=== PATIENT | female | born 1960 | race Caucasian/White ===

== ENCOUNTER 2022-06-16 22:48 | Emergency (ER) | payer BC, OTHER ==
[2022-06-16] MEDS ORDERED: LACTATED RINGERS 1,000 ML IV ONE ×2 (22:55→23:00)
[2022-06-16] MEDS ORDERED: ONDANSETRON 4 MG/2 ML (SDV) Z0FRAN ONE (22:56)
[2022-06-16] MEDS ORDERED: ONDANSETRON 4 MG/2 ML (SDV) Z0FRAN IVP ONE (23:00)
[2022-06-16 23:32] LABS: BASOPHILS # (AUTO) 0.1 10^3/uL (0.0-0.1); BASOPHILS % (AUTO) 1 % (0-10); EOSINOPHILS # (AUTO) 0.1 10^3/uL (0.0-0.3); EOSINOPHILS % (AUTO) 1 % (0-10); HEMATOCRIT 35 % (35-52); HEMOGLOBIN 11.7 g/dL (11.5-16.0); LYMPHOCYTES # (AUTO) 1.2 10^3/uL (1.0-4.0); LYMPHOCYTES % (AUTO) 19 % (12-44); MEAN CORPUSCULAR HEMOGLOBIN 31 pg (25-34); MEAN CORPUSCULAR HGB CONC 33 g/dL (32-36); MEAN CORPUSCULAR VOLUME 94 fL (80-99); MEAN PLATELET VOLUME 9.9 fL (9.0-12.2); MONOCYTES # (AUTO) 0.3 10^3/uL (0.0-1.0); MONOCYTES % (AUTO) 5 % (0-12); NEUTROPHILS # (AUTO) 4.5 10^3/uL (1.8-7.8); NEUTROPHILS % (AUTO) 73 % (42-75); PLATELET COUNT 205 10^3/uL (130-400); WHITE BLOOD COUNT 6.3 10^3/uL (4.3-11.0)
[2022-06-16 23:41] LABS: ALBUMIN 3.9 GM/DL (3.2-4.5); CHLORIDE 101 MMOL/L (98-107); POTASSIUM 3.6 MMOL/L (3.6-5.0); SODIUM 134 MMOL/L (135-145)
[2022-06-16 23:42] LABS: CALCIUM 8.3 MG/DL (8.5-10.1)
[2022-06-16 23:43] LABS: AMYLASE 42 U/L (25-125)
[2022-06-16 23:44] LABS: GLUCOSE 114 MG/DL (70-105); TOTAL PROTEIN 6.3 GM/DL (6.4-8.2)
[2022-06-16 23:45] LABS: CARBON DIOXIDE 19 MMOL/L (21-32)
[2022-06-16 23:46] LABS: BILIRUBIN,TOTAL 0.2 MG/DL (0.1-1.0)
[2022-06-16 23:47] LABS: ALKALINE PHOSPHATASE 100 U/L (40-136)
[2022-06-16 23:48] LABS: CREATININE SERUM 0.76 MG/DL (0.60-1.30); GFR ESTIMATED 89
[2022-06-16 23:49] LABS: BUN/CREATININE RATIO 25
[2022-06-16 23:50] LABS: ALANINE AMINOTRANSFERASE 39 U/L (0-55); MAGNESIUM 1.8 MG/DL (1.6-2.4)
[2022-06-16 23:51] LABS: LIPASE 30 U/L (8-78)
--- NOTE | 2022-06-16 23:57 | ED General ---
General Chief Complaint: Substance Abuse Stated Complaint: VOMITITNG Nursing Triage Note: TO ED VIA [facility] FROM [facility]. PT HAS BEEN DRINKING TONIGHT AND WAS VOMITING AND BECAME "UNRESPONSIVE" IN RESTROOM AT [facility]. PT AROUSES TO NAME AND WILL ANSWER SOME QUESTIONS APPROPRIATELY. Source of Information: Patient, EMS Exam Limitations: Intoxication History of Present Illness Date Seen by Provider: Jun 16, 2022 Time Seen by Provider: 22:49 Initial Comments PT ARRIVES VIA EMS FROM LOCAL [facility] PT HAS BEEN DRINKING HEAVILY TONIGHT--WAS REPORTED TO EMS THAT SHE HAS BEEN DRINKING BOTH BEER AND MIXED DRINKS, UNKNOWN AMOUNT PT CANNOT STATE WHAT SHE WAS DRINKING OR HOW MUCH PT HAS HAD NAUSEA AND VOMITING, AND WAS FOUND "PASSED OUT" IN THE [facility] BATHROOM WHERE SHE HAD BEEN VOMITING. NO INJURY PT DENIES PAIN ANYWHERE. PT IS ABLE TO ANSWER QUESTIONS ABOUT PAST MEDICAL HISTORY, AND DOES NOT APPEAR CONFUSED FRIENDS AT THE SCENE HAD REPORTED TO EMS THAT PT HAS BEEN DIETING AND HAS NOT EATEN AT ALL TODAY, THEN STARTED DRINKING ALCOHOL AROUND 1800 TONIGHT. 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 HAS HAD 3 VACCINES Past Medical History Surgeries: Yes ( X 2; FX LEFT PATELLA/REPAIR) Section, Orthopedic Respiratory: No Cardiac: Yes (MITRAL VALVE PROLAPSE) Hypertension, Valvular Heart Disease Neurological: No Reproductive Disorders: 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 oz. kg; BMI Method: General Appearance: Thin, Other (PT IS CURLED IN POSITION LAYING ON RIGHT SIDE. WILL NOT OPEN EYES. SPEECH IS SLIGHTLY SLURRED. UPPER PART OF BODY AND RIGHT ARM IS COVERED IN VOMIT. PT REEKS OF ALCOHOL) HEENT: PERRL/EOMI Neck: Normal Inspection Respiratory: Normal Breath Sounds, No Accessory Muscle Use Cardiovascular: Regular Rate, Rhythm, No Edema, No Murmur Gastrointestinal: Non Tender, Soft Extremity: Normal Inspection Neurologic/Psychiatric: Alert, Oriented x3 (PT IS INTOXICATED AND DOES NOT RECA LL ALL OF TONIGHT'S EVENTS), No Motor/Sensory Deficits Skin: Normal Color, Warm/Dry Progress/Results/Core Measures Suspected Sepsis SIRS Temperature: Pulse: 86 Respiratory Rate: 14 Laboratory Tests 06/16/22 23:25: White Blood Count 6.3 Blood Pressure 153 /83 Mean: 106 Laboratory Tests 06/16/22 23:25: Creatinine 0.76, Platelet Count 205, Total Bilirubin 0.2 Results/Orders Lab Results Laboratory Tests Test 06/16/22 23:25 06/17/22 00:17 Range/Units White Blood Count 6.3 4.3-11.0 10^3/uL Red Blood Count 3.75 L 3.80-5.11 10^6/uL Hemoglobin 11.7 11.5-16.0 g/dL Hematocrit 35 35-52 % Mean Corpuscular Volume 94 80-99 fL Mean Corpuscular Hemoglobin 31 25-34 pg Mean Corpuscular Hemoglobin Concent 33 32-36 g/dL Red Cell Distribution Width 13.1 10.0-14.5 % Platelet Count 205 130-400 10^3/uL Mean Platelet Volume 9.9 9.0-12.2 fL Immature Granulocyte % (Auto) 1 % Neutrophils (%) (Auto) 73 42-75 % Lymphocytes (%) (Auto) 19 12-44 % Monocytes (%) (Auto) 5 0-12 % Eosinophils (%) (Auto) 1 0-10 % Basophils (%) (Auto) 1 0-10 % Neutrophils # (Auto) 4.5 1.8-7.8 10^3/uL Lymphocytes # (Auto) 1.2 1.0-4.0 10^3/uL Monocytes # (Auto) 0.3 0.0-1.0 10^3/uL Eosinophils # (Auto) 0.1 0.0-0.3 10^3/uL Basophils # (Auto) 0.1 0.0-0.1 10^3/uL Immature Granulocyte # (Auto) 0.1 0.0-0.1 10^3/uL Sodium Level 134 L 135-145 MMOL/L Potassium Level 3.6 3.6-5.0 MMOL/L Chloride Level 101 98-107 MMOL/L Carbon Dioxide Level 19 L 21-32 MMOL/L Anion Gap 14 5-14 MMOL/L Blood Urea Nitrogen 19 H 7-18 MG/DL Creatinine 0.76 0.60-1.30 MG/DL Estimat Glomerular Filtration Rate 89 BUN/Creatinine Ratio 25 Glucose Level 114 H 70-105 MG/DL Calcium Level 8.3 L 8.5-10.1 MG/DL Corrected Calcium 8.4 L 8.5-10.1 MG/DL Magnesium Level 1.8 1.6-2.4 MG/DL Total Bilirubin 0.2 0.1-1.0 MG/DL Aspartate Amino Transf (AST/SGOT) 40 H 5-34 U/L Alanine Aminotransferase (ALT/SGPT) 39 0-55 U/L Alkaline Phosphatase 100 40-136 U/L Total Protein 6.3 L 6.4-8.2 GM/DL Albumin 3.9 3.2-4.5 GM/DL Amylase Level 42 25-125 U/L Lipase 30 8-78 U/L Acetaminophen Level < 10 L 10-30 UG/ML Serum Alcohol 178 H <10 MG/DL My Orders Orders - CLINT AVENDANO DO Acetaminophen (06/16/22 22:54) Alcohol (06/16/22 22:54) Amylase (06/16/22 22:54) Cbc With Automated Diff (06/16/22 22:54) Comprehensive Metabolic Panel (06/16/22 22:54) Drug Screen Stat (Urine) (06/16/22 22:54) Lipase (06/16/22 22:54) Magnesium (06/16/22 22:54) Ua Culture If Indicated (06/16/22 22:54) Ed Iv/Invasive Line Start (06/16/22 22:54) Ed Iv/Invasive Line Start (06/16/22 22:54) Lactated Ringers (Lr 1000 Ml Iv Solution (06/16/22 23:00) Ondansetron Injection (Zofran Injectio (06/16/22 23:00) Lactated Ringers (Lr 1000 Ml Iv Solution (06/16/22 22:55) Ondansetron Injection (Zofran Injectio (06/16/22 22:56) Medications Given in ED Current Medications Medications Dose Ordered Sig/Kasey Route Start Time Stop Time Status Last Admin Dose Admin Lactated Ringer's 1,000 ml @ 0 mls/hr Q0M ONCE IV 06/16/22 23:00 06/16/22 23:01 DC 06/16/22 22:58 999 MLS/HR Ondansetron HCl 8 mg ONCE ONCE IVP 06/16/22 23:00 06/16/22 23:01 DC 06/16/22 22:58 8 MG Vital Signs/I&O 06/16/22 06/16/22 06/17/22 22:48 22:48 00:20 Temp 36.2 36.2 Pulse 86 82 Resp 14 14 B/P (MAP) 153/83 (106) 102/60 Pulse Ox 97 97 O2 Delivery Room Air Room Air Room Air 06/17/22 00:00 Intake Total 1000 ml Balance 1000 ml Capillary Refill : Less Than 3 Seconds Blood Pressure Mean: 106 Progress Note : Progress Note GIVEN IV FLUIDS AND ZOFRAN NO VOMITING DURING ER STAY, AND PT STATES SHE FEELS MUCH BETTER AT DISMISSAL Departure Impression Primary Impression: Acute alcoholic intoxication Additional Impression: Nausea & vomiting Disposition: 01 HOME, SELF-CARE Condition: Improved Departure-Patient Inst. Decision time for Depature: 23:56 Referrals: NO,LOCAL PHYSICIAN (PCP/Family) Primary Care Physician Patient Instructions: ALCOHOL AND SUBSTANCE ABUSE, Alcohol Intoxication ED, Nausea and Vomiting, Adult Add. Discharge Instructions: NO ALCOHOL CLEAR LIQUIDS--WATER, BROTH, JELLO, GATORADE TOMORROW IF YOU ARE BETTER, ADD BRATS DIET TO CLEAR LIQUIDS FOLLOW UP WITH YOUR REGULAR DR NEEDED All discharge instructions reviewed with patient and/or family. Voiced unders tanding. CLINT AVENDANO DO Jun 16, 2022 23:57
[2022-06-17 00:06] LABS: ACETAMINOPHEN < 10 UG/ML (10-30)
[2022-06-17 00:20] VITALS: BP 102/60
[2022-06-17 00:27] LABS: BILIRUBIN,URINE NEGATIVE (NEGATIVE); CLARITY,URINE CLEAR; COLOR,URINE YELLOW; GLUCOSE, URINE (UA) 1+ (NEGATIVE); KETONES,URINE 1+ (NEGATIVE); LEUKOCYTE ESTERASE ,URINE NEGATIVE (NEGATIVE); NITRITE,URINE NEGATIVE (NEGATIVE); PROTEIN,URINE NEGATIVE (NEGATIVE)
[2022-06-17 00:37] LABS: BACTERIA,URINE FEW /HPF; RBC,URINE RARE /HPF
[2022-06-17 00:39] LABS: AMPHETAMINE SCREEN, URINE NEGATIVE (NEGATIVE); BARBITURATE SCREEN URINE NEGATIVE (NEGATIVE); BENZODIAZEPINES SCREEN URINE NEGATIVE (NEGATIVE); CANNABINOID SCREEN, URINE NEGATIVE (NEGATIVE); COCAINE SCREEN URINE NEGATIVE (NEGATIVE); METHADONE STAT NEGATIVE (NEGATIVE); OPIATE SCREEN URINE NEGATIVE (NEGATIVE); OXYCODONE STAT NEGATIVE (NEGATIVE); PROPOXYPHENE STAT NEGATIVE (NEGATIVE); TRICYCLIC ANTIDEPRESSANTS SCRE NEGATIVE (NEGATIVE)
== END 2022-06-17 00:20 | disposition home or self-care (01) ==
LOC: EDUNIT# 22:48 → ER 22:50
DX: F10.129 Alcohol abuse with intoxication, unspecified (principal); Y90.6 Blood alcohol level of 120-199 mg/100 ml
CPT/HCPCS: 80053; 80306; 81000; 82150; 83690; 83735; 85025; 87088; 99284; G0480 ×2; 36415; 80320; 80329